=== PATIENT | male | born 1965 ===

== ENCOUNTER → 2016-09-04 23:35 | Emergency (ER) | payer OTHER ==
[~2016-09-04 23:35] MED LIST: CAPTOPRIL25 MG PO; CHEWABLE ASPIRI81 MG PO; FAMOTIDINE20 MG PO; IMDUR-ER30 MG PO; LOPRESSOR PO; METOPROLOL TAR25 MG PO; NITROGLYGERIN0.4 MG SL; NORVASC10 MG PO
== END | disposition left against medical advice (07) ==
LOC: CED 23:35
DX: Z53.21 Procedure and treatment not carried out due to patient leaving prior to being seen by health care provider (principal)